=== PATIENT | female | born 1945 | race Caucasian/White ===

== ENCOUNTER 2017-02-07 08:12 | Day surgery (SDC) | END 2017-02-07 11:39 | disposition home or self-care (01) | DX: R19.4 Change in bowel habit (principal); K64.4 Residual hemorrhoidal skin tags; K29.70 Gastritis, unspecified, without bleeding; E11.9 Type 2 diabetes mellitus without complications; I10 Essential (primary) hypertension | CPT/HCPCS: 43239; 45378; 82962; 88305; 88312; 88313; Z7610 ==